=== PATIENT | male | born 1980 | race Caucasian/White ===

== ENCOUNTER 2017-01-23 18:03 | Emergency (ER) | payer MEDICARE ==
[~2017-01-23] VITALS: Ht 185.4 cm; Wt 161.0 kg
[~2017-01-23 18:03] MED LIST: BACTRIM DS1 TAB PO; EC ASPIRIN325 MG PO; PHOSLO667 M1 PO; PROZAC20 MG PO; RENVELA800 MG PO
[2017-01-23] MEDS ORDERED: AMLODIPINE5 MG PO (18:18)
[2017-01-23 19:45] LABS: HEMATOCRIT 40.3 % (39.0-50.0); HEMOGLOBIN 13.2 g/dl (14.0-18.0); MEAN CELL VOLUME 103.9 fL CALC (80.0-100.0); MEAN CORPUSCULAR HGB CONC 32.8 g/L CALC (32.0-36.0); NEUT# 3.79 thou/uL (1.82-7.42); RED BLOOD COUNT 3.88 mill/uL (4.70-6.10); RED CELL DISTRI WIDTH 15.5 % (11.5-15.5)
[2017-01-23 19:56] LABS: ALBUMIN 4.3 g/dL (3.2-5.0); BILIRUBIN, TOTAL 0.6 mg/dL (0.0-1.4); POTASSIUM 4.7 mmol/l (3.5-5.1)
[2017-01-23 19:58] LABS: CREATININE 7.3 mg/dL (0.7-1.3)
[2017-01-23 20:33] VITALS: BP 139/93
== END 2017-01-23 20:34 | disposition home or self-care (01) ==
LOC: ED 18:03
PROVIDERS: Emergency Medicine
DX: K59.00 Constipation, unspecified (principal); I12.0 Hypertensive chronic kidney disease with stage 5 chronic kidney disease or end stage renal disease; E11.22 Type 2 diabetes mellitus with diabetic chronic kidney disease; N18.6 End stage renal disease; Z99.2 Dependence on renal dialysis

== ENCOUNTER 2017-04-22 22:18 | Emergency (ER) | payer MEDICARE ==
[~2017-04-22] VITALS: Ht 185.4 cm; Wt 167.2 kg
[~2017-04-22 22:18] MED LIST changes: +AMLODIPINE5 MG PO
[2017-04-22] MEDS ORDERED: FOSRENOL1000 MG PO (22:29)
[2017-04-23 00:30] VITALS: BP 177/95
== END 2017-04-23 01:01 | disposition home or self-care (01) ==
LOC: ED 22:18
DX: M79.89 Other specified soft tissue disorders (principal); I10 Essential (primary) hypertension; E11.9 Type 2 diabetes mellitus without complications

== ENCOUNTER 2017-10-03 19:06 | Inpatient (IN) | payer MEDICARE ==
[~2017-10-03] VITALS: Ht 185.4 cm; Wt 167.8 kg
[~2017-10-03 19:06] MED LIST changes: +FOSRENOL1000 MG PO
--- NOTE | 2017-10-03 19:20 | NUR ---
PATIENT TO ROOM 6 VIA EMS STRETCHER. PATIENT UNDRESSED INTO A GOWN. PLACED ON MONITOR. AWAITING MD HUDSON.
--- NOTE | 2017-10-03 19:35 | NUR ---
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 NO COUGH NO CONGESTION,
[2017-10-03 20:47] LABS: HEMATOCRIT 38.8 % (39.0-50.0); HEMOGLOBIN 12.3 g/dl (14.0-18.0); IMMATURE GRANULOCYTES 0.5 % (0.0-1.0); MEAN CORPUSCULAR HGB 30.4 pG CALC (26.0-32.0); MEAN CORPUSCULAR HGB CONC 31.7 g/L CALC (32.0-36.0); NEUT# 11.83 thou/uL (1.82-7.42); RED BLOOD COUNT 4.05 mill/uL (4.70-6.10); RED CELL DISTRI WIDTH 15.6 % (11.5-15.5)
[2017-10-03 20:51] LABS: MEAN CELL VOLUME 95.8 fL CALC (80.0-100.0)
[2017-10-03 20:56] LABS: INFLUENZA A NONE DETECTED (NONE DETECT); INFLUENZA B NONE DETECTED (NONE DETECT)
[2017-10-03 21:06] LABS: ALBUMIN 4.3 g/dL (3.2-5.0); BILIRUBIN, TOTAL 0.8 mg/dL (0.0-1.4); TOTAL PROTEIN 7.2 g/dL (6.3-8.2)
[2017-10-03 21:15] LABS: CREATININE 11.7 mg/dL (0.7-1.3); POTASSIUM 5.8 mmol/l (3.5-5.1)
--- NOTE | 2017-10-03 21:48 | NUR ---
NO N/V APPEARS COMFORTABLE
--- NOTE | 2017-10-03 22:24 | NUR ---
PHONE REPORT TO DRAKE ROSA ON MS
--- NOTE | 2017-10-03 22:37 | NUR ---
TO FLOOR VIA STRETCHER RN ESCORT IN STABLE CONDITION
[2017-10-03 22:50] VITALS: BP 139/83
--- NOTE | 2017-10-03 23:00 | NUR ---
PATIENT ADMITTED FROM ER VIA STRTCHER WITH ER STAFF IN ATTENDANCE. PATIENT WAS ABLE TO GET OFF STRTCHER TO THE STANDING SCALE AND THEN TO BED. PATIENT IS ALERT AND ORIENTEDX3. STILL WITH FEVER-WASMEDICATED IN ER WITH TYLENOL AND MOTRIN. 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 PATIENT STATES THAT THEY ARE NOW USING IT TO HIS DIALYSIS TREATMENTS. PATIENT ALSO HAS TUNNELED CATH TO LEFT UPPER CHEST WITH DRESSING INTACT. PATIENT STATES THAT THEY WERE TO TAKE THAT CATH OUT TOMMORROW AT HIS H/D APPT. PATIENT STATES THAT HE NO LONGER PRODUCES ANY URINE OUTPUT DUE TO HIS ESRD. HEP LOCK TO RIGHT AC INTACT AND APPEARS HEALTY WITH GOOD BLOOD RETURN. PATIENT ORIENTED TO ROOM AND SURROUNDINGS. INSTRUCTED PATIENT OS SAFETY PRECAUTIONS. INSTRUCTED PATIENT ON USE OF NURSE CALL LIGHT SYSTEM, PHONE AND TV REMOTE. CALL LIGHT IN REACH. WILL CONT TO MONITOR.
[2017-10-04 00:20] VITALS: BP 143/84
--- NOTE | 2017-10-04 00:30 | NUR ---
TEMP-98.8 AT THIS TIME. PATIENT APPEARS SLEEPING AT THIS TIME. CALL LIGHT IN REACH. WILL CONT TO MONITOR.
[2017-10-04 04:57] VITALS: BP 118/72
--- NOTE | 2017-10-04 05:52 | NUR ---
PATIENT WITH TEMP OF 101.3 AND CREATINE 13[address] SEGURA CALLED AND NOTIFIED. NEW ORDER FOR TYLENOL RECIEVED. WILL MEDICATED WHEN PROFILED ON EMAR. WILL CONT TO MONITOR.
--- NOTE | 2017-10-04 07:27 | NUR ---
REPORT RECEIVED FROM DRAKE ROSA. PT SLEEPING AT THIS TIME. CALL LIGHT WITHIN REACH.
--- NOTE | 2017-10-04 08:13 | NUR ---
PT SITTING UPRIGHT IN BED. DENIES PAIN. REPORTING OF CONCERNS ENCOURAGED. PLAN OF CARE DISCUSSED. CALL LIGHT REVIEWED AND IN REACH. PT STATES UNDERSTANDING.
[2017-10-04 11:15] VITALS: BP 115/74
--- NOTE | 2017-10-04 14:41 | NUR ---
[facility] AT BEDSIDE FOR TRANSPORT TO [facility].
--- NOTE | 2017-10-04 15:14 | NUR ---
REPORT GIVEN TO DRAKE COFFEY AT [facility].
--- NOTE | 2017-10-06 15:59 | NUR ---
Results for final blood culture called and faxed to DRAKE Holbrook at [facility] at [phone]
== END 2017-10-04 14:53 | DRG 314 ==
LOC: ED 19:06 → ED-I 21:20 → ED 21:41 → MS2 21:42
PROVIDERS: Emergency Medicine; Internal Medicine; ADMIT Internal Medicine; ATTEND Internal Medicine
DX: T80.211A Bloodstream infection due to central venous catheter, initial encounter (principal); A41.9 Sepsis, unspecified organism; E11.22 Type 2 diabetes mellitus with diabetic chronic kidney disease; I12.0 Hypertensive chronic kidney disease with stage 5 chronic kidney disease or end stage renal disease; N18.6 End stage renal disease; Z68.42 Body mass index [BMI] 45.0-49.9, adult; E87.5 Hyperkalemia; E03.9 Hypothyroidism, unspecified; F79 Unspecified intellectual disabilities; F32.9 Major depressive disorder, single episode, unspecified; B95.61 Methicillin susceptible Staphylococcus aureus infection as the cause of diseases classified elsewhere; Y83.8 Other surgical procedures as the cause of abnormal reaction of the patient, or of later complication, without mention of misadventure at the time of the procedure; Z99.2 Dependence on renal dialysis
CPT/HCPCS: J0692

== ENCOUNTER 2017-10-24 20:05 | Emergency (ER) | payer MEDICARE ==
[~2017-10-24] VITALS: Ht 185.4 cm; Wt 163.6 kg
[2017-10-24 21:13] LABS: IMMATURE GRANULOCYTES 0.8 % (0.0-1.0); MEAN CORPUSCULAR HGB 30.7 pG CALC (26.0-32.0); MEAN CORPUSCULAR HGB CONC 31.3 g/L CALC (32.0-36.0); NEUT# 4.86 thou/uL (1.82-7.42); RED BLOOD COUNT 3.03 mill/uL (4.70-6.10); RED CELL DISTRI WIDTH 15.9 % (11.5-15.5)
[2017-10-24 21:20] LABS: HEMATOCRIT 29.7 % (39.0-50.0); HEMOGLOBIN 9.3 g/dl (14.0-18.0)
[2017-10-24 21:28] LABS: ACT PARTIAL THROMBO TIME 25.2 SECONDS (20.0-32.5); PROTHROMBIN TIME 10.7 SECONDS (9.0-12.5)
[2017-10-24 21:41] LABS: ALBUMIN 3.6 g/dL (3.2-5.0); ALKALINE PHOSPHATASE 90 u/l (38-126); BILIRUBIN, TOTAL 0.3 mg/dL (0.0-1.4); BUN 53 mg/dL (9-20); CARBON DIOXIDE 24 mmol/l (22-30); CHLORIDE 98 mmol/l (95-108); SGOT/AST 18 u/l (17-59); SGPT/ALT 37 u/l (21-72); TOTAL PROTEIN 6.2 g/dL (6.3-8.2)
[2017-10-24 21:44] LABS: ANION GAP 23 (6-22 (CALC)); BUN/CREATININE RATIO 5 (12-20 (CALC)); CREATININE 11.3 mg/dL (0.7-1.3); GFR 5 ML/MIN (>=60 (CALC)); GFR FOR AFR.AMER. 6 ML/MIN (>=60 (CALC)); POTASSIUM 5.3 mmol/l (3.5-5.1); SODIUM 140 mmol/l (137-146)
[2017-10-24 21:53] LABS: MYOGLOBIN 137 ng/mL (0 - 121)
[2017-10-24] MEDS ORDERED: RISPERIDONE0.5 MG PO (21:55)
[2017-10-24] MEDS ORDERED: FLUOXETINE20 MG PO (21:56)
[2017-10-24] MEDS ORDERED: ASPIRIN325 MG PO (21:56)
[2017-10-24] MEDS ORDERED: METOPROLOL SUCC50 MG PO (21:57)
[2017-10-24] MEDS ORDERED: JANUVIA50 MG PO (21:58)
[2017-10-24] MEDS ORDERED: RENAGEL800 MG PO (22:01)
[2017-10-25 01:16] VITALS: BP 183/91
== END 2017-10-25 01:16 | disposition short-term general hospital (02) ==
LOC: ED 20:05
PROVIDERS: Emergency Medicine
DX: R07.9 Chest pain, unspecified (principal); I12.0 Hypertensive chronic kidney disease with stage 5 chronic kidney disease or end stage renal disease; N18.6 End stage renal disease; Z99.2 Dependence on renal dialysis; R06.02 Shortness of breath

== ENCOUNTER 2017-10-31 12:54 | Emergency (ER) | payer MEDICARE ==
[~2017-10-31] VITALS: Ht 185.4 cm; Wt 158.6 kg
[~2017-10-31 12:54] MED LIST changes: +ASPIRIN325 MG PO; +FLUOXETINE20 MG PO; +JANUVIA50 MG PO; +METOPROLOL SUCC50 MG PO; +RENAGEL800 MG PO; +RISPERIDONE0.5 MG PO
[2017-10-31 13:22] LABS: HEMATOCRIT 29.2 % (39.0-50.0); HEMOGLOBIN 9.3 g/dl (14.0-18.0); IMMATURE GRANULOCYTES 0.5 % (0.0-1.0); MEAN CELL VOLUME 96.1 fL CALC (80.0-100.0); MEAN CORPUSCULAR HGB 30.6 pG CALC (26.0-32.0); MEAN CORPUSCULAR HGB CONC 31.8 g/L CALC (32.0-36.0); NEUT# 8.94 thou/uL (1.82-7.42); RED BLOOD COUNT 3.04 mill/uL (4.70-6.10); RED CELL DISTRI WIDTH 16.8 % (11.5-15.5)
[2017-10-31 13:44] LABS: CREATININE 9.5 mg/dL (0.7-1.3); POTASSIUM 3.9 mmol/l (3.5-5.1)
[2017-10-31 14:04] LABS: INFLUENZA A NONE DETECTED (NONE DETECT); INFLUENZA B NONE DETECTED (NONE DETECT)
[2017-10-31] MEDS ORDERED: ZPAK PO (14:57)
[2017-10-31] MEDS ORDERED: AUGMENTIN875TAB PO (14:57)
[2017-10-31 16:04] VITALS: BP 105/49
== END 2017-10-31 16:05 | disposition home or self-care (01) ==
LOC: ED 12:54
PROVIDERS: Family Medicine
DX: J06.9 Acute upper respiratory infection, unspecified (principal); R06.02 Shortness of breath; R50.9 Fever, unspecified; R05 Cough; Z99.2 Dependence on renal dialysis

== ENCOUNTER 2017-11-04 06:26 | Emergency (ER) | payer MEDICARE ==
[~2017-11-04] VITALS: Ht 185.4 cm; Wt 160.0 kg
[~2017-11-04 06:26] MED LIST changes: +AUGMENTIN875TAB PO; +ZPAK PO
[2017-11-04] MEDS ORDERED: DIALYVITE800 MG PO (06:41)
[2017-11-04] MEDS ORDERED: NEURONTIN300 MG PO (06:41)
[2017-11-04 07:42] LABS: HEMATOCRIT 26.2 % (39.0-50.0); HEMOGLOBIN 8.2 g/dl (14.0-18.0); MEAN CORPUSCULAR HGB 30.4 pG CALC (26.0-32.0); MEAN CORPUSCULAR HGB CONC 31.3 g/L CALC (32.0-36.0); NEUT# 10.56 thou/uL (1.82-7.42); RED BLOOD COUNT 2.7 mill/uL (4.70-6.10); RED CELL DISTRI WIDTH 17.2 % (11.5-15.5)
[2017-11-04 08:06] LABS: BILIRUBIN, TOTAL 0.4 mg/dL (0.0-1.4); POTASSIUM 3.9 mmol/l (3.5-5.1); TOTAL PROTEIN 5.7 g/dL (6.3-8.2)
[2017-11-04 10:47] VITALS: BP 108/67
--- NOTE | 2017-11-05 07:26 | NUR ---
PRELIMINARY BLOOD CULTURE RESULTS FAXED TO CLEO JUAN AT [facility] AT 7:25AM WE WILL SEND FINAL RESULTS WHEN THEY ARE AVAILABLE. FAX# [phone]
--- NOTE | 2017-11-06 07:43 | NUR ---
FAXED FINAL C&S RESULTS TO [facility] AT 7671AM
== END 2017-11-04 10:43 ==
LOC: ED 06:26
PROVIDERS: Emergency Medicine
DX: J18.9 Pneumonia, unspecified organism (principal); I12.0 Hypertensive chronic kidney disease with stage 5 chronic kidney disease or end stage renal disease; N18.6 End stage renal disease; Z99.2 Dependence on renal dialysis; R50.9 Fever, unspecified; R00.0 Tachycardia, unspecified; B95.61 Methicillin susceptible Staphylococcus aureus infection as the cause of diseases classified elsewhere

== ENCOUNTER 2017-11-28 16:12 | Emergency (ER) | payer MEDICARE ==
[~2017-11-28] VITALS: Ht 185.4 cm; Wt 164.0 kg
[~2017-11-28 16:12] MED LIST changes: +DIALYVITE800 MG PO; +NEURONTIN300 MG PO
[2017-11-28 17:39] LABS: HEMATOCRIT 22.9 % (39.0-50.0); HEMOGLOBIN 7.2 g/dl (14.0-18.0); IMMATURE GRANULOCYTES 0.5 % (0.0-1.0); MEAN CELL VOLUME 93.5 fL CALC (80.0-100.0); MEAN CORPUSCULAR HGB 29.4 pG CALC (26.0-32.0); MEAN CORPUSCULAR HGB CONC 31.4 g/L CALC (32.0-36.0); NEUT# 6.93 thou/uL (1.82-7.42); RED BLOOD COUNT 2.45 mill/uL (4.70-6.10); RED CELL DISTRI WIDTH 15.9 % (11.5-15.5)
[2017-11-28 17:47] LABS: POTASSIUM 4.4 mmol/l (3.5-5.1)
[2017-11-28 17:54] LABS: CREATININE 9.8 mg/dL (0.7-1.3)
[2017-11-28 18:14] LABS: INFLUENZA A NONE DETECTED (NONE DETECT); INFLUENZA B NONE DETECTED (NONE DETECT)
[2017-11-28] MEDS ORDERED: VENTOLIN HFA IN (18:32)
[2017-11-28] MEDS ORDERED: Levaquin PO (18:32)
[2017-11-28 18:40] VITALS: BP 169/96
--- NOTE | 2017-11-29 07:43 | NUR ---
Review of blood culture from 11/28/17, preliminary shows gram positive cocci. Possible contamination. Pt DC on Levaquin, providing coverage. Results faxed to PCP. Pt to be reviewed again upon final result.
== END 2017-11-28 18:59 | disposition home or self-care (01) ==
LOC: ED 16:12
PROVIDERS: Family Medicine
DX: J20.9 Acute bronchitis, unspecified (principal); E11.22 Type 2 diabetes mellitus with diabetic chronic kidney disease; I12.0 Hypertensive chronic kidney disease with stage 5 chronic kidney disease or end stage renal disease; N18.6 End stage renal disease; Z99.2 Dependence on renal dialysis; E89.0 Postprocedural hypothyroidism

== ENCOUNTER 2017-11-30 12:48 | Emergency (ER) | payer MEDICARE ==
[~2017-11-30] VITALS: Ht 185.4 cm; Wt 163.0 kg
[~2017-11-30 12:48] MED LIST changes: +Levaquin PO; +VENTOLIN HFA IN
[2017-11-30 13:28] LABS: HEMATOCRIT 22.6 % (39.0-50.0); IMMATURE GRANULOCYTES 0.9 % (0.0-1.0); MEAN CELL VOLUME 93.4 fL CALC (80.0-100.0); MEAN CORPUSCULAR HGB 28.5 pG CALC (26.0-32.0); MEAN CORPUSCULAR HGB CONC 30.5 g/L CALC (32.0-36.0); NEUT# 8.47 thou/uL (1.82-7.42); RED BLOOD COUNT 2.42 mill/uL (4.70-6.10); RED CELL DISTRI WIDTH 16.4 % (11.5-15.5)
[2017-11-30 13:49] LABS: HEMOGLOBIN 6.9 g/dl (14.0-18.0)
[2017-11-30 14:08] VITALS: BP 114/61
== END 2017-11-30 14:08 | disposition home or self-care (01) ==
LOC: ED 12:48
PROVIDERS: Family Medicine
DX: Z03.89 Encounter for observation for other suspected diseases and conditions ruled out (principal); J40 Bronchitis, not specified as acute or chronic; R50.9 Fever, unspecified

== ENCOUNTER 2017-12-02 16:22 | Emergency (ER) | payer MEDICARE ==
[~2017-12-02] VITALS: Ht 185.4 cm; Wt 160.0 kg
[2017-12-02 17:39] LABS: HEMATOCRIT 23.3 % (39.0-50.0); HEMOGLOBIN 7.2 g/dl (14.0-18.0); IMMATURE GRANULOCYTES 3.7 % (0.0-1.0); MEAN CORPUSCULAR HGB CONC 30.9 g/L CALC (32.0-36.0); NEUT# 6.67 thou/uL (1.82-7.42); RED BLOOD COUNT 2.48 mill/uL (4.70-6.10); RED CELL DISTRI WIDTH 16.6 % (11.5-15.5)
[2017-12-02 17:46] LABS: INFLUENZA A NONE DETECTED (NONE DETECT); INFLUENZA B NONE DETECTED (NONE DETECT)
[2017-12-02 18:00] LABS: POTASSIUM 3.8 mmol/l (3.5-5.1)
[2017-12-02 18:04] LABS: CREATININE 5.1 mg/dL (0.7-1.3)
[2017-12-02 20:33] VITALS: BP 137/82
== END 2017-12-02 20:33 ==
LOC: ED 16:22
PROVIDERS: Family Medicine
DX: J18.9 Pneumonia, unspecified organism (principal); E11.22 Type 2 diabetes mellitus with diabetic chronic kidney disease; I12.0 Hypertensive chronic kidney disease with stage 5 chronic kidney disease or end stage renal disease; N18.6 End stage renal disease; Z99.2 Dependence on renal dialysis; E03.9 Hypothyroidism, unspecified; R78.81 Bacteremia; B95.61 Methicillin susceptible Staphylococcus aureus infection as the cause of diseases classified elsewhere

== ENCOUNTER 2018-01-24 11:39 | Emergency (ER) | payer MEDICARE ==
[~2018-01-24] VITALS: Ht 185.4 cm; Wt 160.0 kg
[2018-01-24 12:26] LABS: INFLUENZA A NONE DETECTED (NONE DETECT); INFLUENZA B NONE DETECTED (NONE DETECT)
[2018-01-24 12:27] LABS: HEMATOCRIT 22.6 % (39.0-50.0); HEMOGLOBIN 7.2 g/dl (14.0-18.0); IMMATURE GRANULOCYTES 0.7 % (0.0-1.0); MEAN CORPUSCULAR HGB 28.7 pG CALC (26.0-32.0); MEAN CORPUSCULAR HGB CONC 31.9 g/L CALC (32.0-36.0); NEUT# 6.31 thou/uL (1.82-7.42); POTASSIUM 4.4 mmol/l (3.5-5.1); RED BLOOD COUNT 2.51 mill/uL (4.70-6.10); RED CELL DISTRI WIDTH 16.2 % (11.5-15.5)
[2018-01-24 12:36] LABS: CREATININE 9.2 mg/dL (0.7-1.3)
[2018-01-24 13:50] VITALS: BP 211/106
== END 2018-01-24 13:55 | disposition short-term general hospital (02) ==
LOC: ED 11:39
PROVIDERS: Family Medicine
DX: I16.0 Hypertensive urgency (principal); R06.02 Shortness of breath; E11.9 Type 2 diabetes mellitus without complications; Z99.2 Dependence on renal dialysis; E03.9 Hypothyroidism, unspecified

== ENCOUNTER 2018-06-24 16:35 | Emergency (ER) | payer MEDICARE ==
[~2018-06-24] VITALS: Ht 185.4 cm; Wt 140.0 kg
[2018-06-24 17:23] LABS: IMMATURE GRANULOCYTES 1.1 % (0.0-5.0); MEAN CORPUSCULAR HGB 34.8 pG CALC (26.0-32.0); MEAN CORPUSCULAR HGB CONC 33.1 g/L CALC (32.0-36.0); NEUT# 3.88 thou/uL (1.82-7.42); RED BLOOD COUNT 3.48 mill/uL (4.70-6.10); RED CELL DISTRI WIDTH 15.9 % (11.5-15.5)
[2018-06-24 17:47] LABS: HEMATOCRIT 36.6 % (39.0-50.0); HEMOGLOBIN 12.1 g/dl (14.0-18.0); MEAN CELL VOLUME 105.2 fL CALC (80.0-100.0)
[2018-06-24 18:00] LABS: ALKALINE PHOSPHATASE 102 u/l (38-126); BILIRUBIN, TOTAL 0.3 mg/dL (0.0-1.4); CARBON DIOXIDE 24 mmol/l (22-30); CHLORIDE 98 mmol/l (95-108); SGOT/AST 18 u/l (17-59); SODIUM 138 mmol/l (137-146); TOTAL PROTEIN 6.5 g/dL (6.3-8.2)
[2018-06-24 18:09] LABS: ALBUMIN 3.9 g/dL (3.2-5.0); ANION GAP 22 (6-22 (CALC)); BUN 83 mg/dL (9-20); BUN/CREATININE RATIO 7 (12-20 (CALC)); CREATININE 12.3 mg/dL (0.7-1.3); GFR 5 ML/MIN (>=60 (CALC)); GFR FOR AFR.AMER. 6 ML/MIN (>=60 (CALC)); POTASSIUM 5.8 mmol/l (3.5-5.1)
[2018-06-24] MEDS ORDERED: PROZAC10 MG PO (18:30)
[2018-06-24 19:35] VITALS: BP 168/82
== END 2018-06-24 19:35 | disposition home or self-care (01) ==
LOC: ED 16:35
DX: E87.5 Hyperkalemia (principal); E87.70 Fluid overload, unspecified; E03.9 Hypothyroidism, unspecified; E11.22 Type 2 diabetes mellitus with diabetic chronic kidney disease; I12.0 Hypertensive chronic kidney disease with stage 5 chronic kidney disease or end stage renal disease; N18.6 End stage renal disease; Z99.2 Dependence on renal dialysis; R06.02 Shortness of breath

== ENCOUNTER 2018-09-09 19:14 | Emergency (ER) | payer MEDICARE, MEDICAID ==
[~2018-09-09] VITALS: Ht 185.4 cm; Wt 171.0 kg
[~2018-09-09 19:14] MED LIST changes: +PROZAC10 MG PO
[2018-09-09] MEDS ORDERED: BACTRIM DS1 TAB PO (20:24)
[2018-09-09] MEDS ORDERED: AUGMENTIN875TAB PO (20:24)
[2018-09-09 20:26] VITALS: BP 123/72
== END 2018-09-09 20:34 | disposition home or self-care (01) ==
LOC: ED 19:14
PROC: 0H98XZZ Drainage of Buttock Skin, External Approach (ICD-10-PCS; principal; 2018-09-09)
DX: L02.31 Cutaneous abscess of buttock (principal); E11.22 Type 2 diabetes mellitus with diabetic chronic kidney disease; I12.0 Hypertensive chronic kidney disease with stage 5 chronic kidney disease or end stage renal disease; N18.6 End stage renal disease; E03.9 Hypothyroidism, unspecified; B95.62 Methicillin resistant Staphylococcus aureus infection as the cause of diseases classified elsewhere; Z99.2 Dependence on renal dialysis

== ENCOUNTER 2018-09-11 17:03 | Emergency (ER) | payer MEDICARE, MEDICAID ==
[~2018-09-11] VITALS: Ht 185.4 cm; Wt 170.4 kg
[2018-09-11] MEDS ORDERED: DOXYCYCL HYC100 MG PO (17:43)
[2018-09-11 18:18] LABS: HEMATOCRIT 37.9 % (39.0-50.0); HEMOGLOBIN 12.3 g/dl (14.0-18.0); IMMATURE GRANULOCYTES 1.1 % (0.0-5.0); MEAN CELL VOLUME 107.7 fL CALC (80.0-100.0); MEAN CORPUSCULAR HGB 34.9 pG CALC (26.0-32.0); MEAN CORPUSCULAR HGB CONC 32.5 g/L CALC (32.0-36.0); NEUT# 5.65 thou/uL (1.82-7.42); RED BLOOD COUNT 3.52 mill/uL (4.70-6.10); RED CELL DISTRI WIDTH 15.2 % (11.5-15.5)
[2018-09-11 18:41] LABS: ALBUMIN 4.2 g/dL (3.2-5.0); BILIRUBIN, TOTAL 0.5 mg/dL (0.0-1.4); TOTAL PROTEIN 6.8 g/dL (6.3-8.2)
[2018-09-11 18:49] LABS: CREATININE 11.2 mg/dL (0.7-1.3); POTASSIUM 5.3 mmol/l (3.5-5.1)
[2018-09-11 23:03] VITALS: BP 118/71
== END 2018-09-11 23:04 | disposition home or self-care (01) ==
LOC: ED 17:03
PROVIDERS: Emergency Medicine
DX: L02.425 Furuncle of right lower limb (principal); E11.22 Type 2 diabetes mellitus with diabetic chronic kidney disease; I12.0 Hypertensive chronic kidney disease with stage 5 chronic kidney disease or end stage renal disease; N18.6 End stage renal disease; E03.9 Hypothyroidism, unspecified; Z99.2 Dependence on renal dialysis

== ENCOUNTER 2018-10-13 16:21 | Emergency (ER) | payer MEDICARE, MEDICAID ==
[~2018-10-13] VITALS: Ht 185.4 cm; Wt 168.0 kg
[~2018-10-13 16:21] MED LIST changes: +DOXYCYCL HYC100 MG PO
[2018-10-13 17:55] LABS: HEMATOCRIT 36.2 % (39.0-50.0); HEMOGLOBIN 11.6 g/dl (14.0-18.0); IMMATURE GRANULOCYTES 0.8 % (0.0-5.0); MEAN CELL VOLUME 104.9 fL CALC (80.0-100.0); MEAN CORPUSCULAR HGB 33.6 pG CALC (26.0-32.0); NEUT# 2.53 thou/uL (1.82-7.42); RED BLOOD COUNT 3.45 mill/uL (4.70-6.10); RED CELL DISTRI WIDTH 16.1 % (11.5-15.5)
[2018-10-13 18:12] LABS: POTASSIUM 4.6 mmol/l (3.5-5.1)
[2018-10-13 18:22] LABS: CREATININE 14.9 mg/dL (0.7-1.3)
[2018-10-13 18:34] LABS: MAGNESIUM 1.9 mg/dL (1.6-2.3)
[2018-10-13 19:04] LABS: TSH, 3RD GENERATION 2.04 uIU/mL (0.47 - 4.68)
[2018-10-13] MEDS ORDERED: BROMFED D1 PO (19:18)
[2018-10-13 19:35] VITALS: BP 132/59
== END 2018-10-13 19:53 | disposition home or self-care (01) ==
LOC: ED 16:21
PROVIDERS: Family Medicine
DX: B34.9 Viral infection, unspecified (principal); R09.89 Other specified symptoms and signs involving the circulatory and respiratory systems; R11.2 Nausea with vomiting, unspecified; I12.0 Hypertensive chronic kidney disease with stage 5 chronic kidney disease or end stage renal disease; N18.6 End stage renal disease; Z99.2 Dependence on renal dialysis

== ENCOUNTER 2018-10-25 17:21 | Emergency (ER) | payer OTHER ==
[~2018-10-25] VITALS: Ht 185.4 cm; Wt 168.0 kg
[~2018-10-25 17:21] MED LIST changes: +BROMFED D1 PO
[2018-10-25 18:27] LABS: HEMATOCRIT 39.6 % (39.0-50.0); HEMOGLOBIN 12.8 g/dl (14.0-18.0); IMMATURE GRANULOCYTES 0.7 % (0.0-5.0); MEAN CELL VOLUME 106.5 fL CALC (80.0-100.0); MEAN CORPUSCULAR HGB 34.4 pG CALC (26.0-32.0); MEAN CORPUSCULAR HGB CONC 32.3 g/L CALC (32.0-36.0); NEUT# 4.26 thou/uL (1.82-7.42); RED BLOOD COUNT 3.72 mill/uL (4.70-6.10); RED CELL DISTRI WIDTH 16.4 % (11.5-15.5)
[2018-10-25 18:59] LABS: ALBUMIN 4.5 g/dL (3.2-5.0); BILIRUBIN, TOTAL 0.5 mg/dL (0.0-1.4); TOTAL PROTEIN 7.6 g/dL (6.3-8.2)
[2018-10-25 19:05] LABS: CREATININE 12.3 mg/dL (0.7-1.3); POTASSIUM 5.5 mmol/l (3.5-5.1)
[2018-10-25 23:10] VITALS: BP 152/69
== END 2018-10-25 23:19 | disposition left against medical advice (07) | DRG 313 ==
LOC: ED 17:21 → ED-I 17:45 → ED 23:19
PROVIDERS: Emergency Medicine
DX: R07.9 Chest pain, unspecified (principal); E87.5 Hyperkalemia; N18.6 End stage renal disease; I12.0 Hypertensive chronic kidney disease with stage 5 chronic kidney disease or end stage renal disease; Z99.2 Dependence on renal dialysis; Z91.19 Patient's noncompliance with other medical treatment and regimen